=== PATIENT | male | born 1995 | race Caucasian/White ===

== ENCOUNTER 2019-07-21 18:48 | Emergency (ER) | payer BC ==
[2019-07-21] MEDS ORDERED: HYDROmorphone 1 MG/ML Syringe IVPUSH ONE (19:26)
[2019-07-21] MEDS ORDERED: Acetaminophen 325 MG Tab PO ONE (19:26)
[2019-07-21] MEDS ORDERED: Metoclopramide 10 MG/2 ML SDV IVPUSH ONE (19:26)
[2019-07-21] MEDS ORDERED: Ketorolac 30 MG/ML SDV IVPUSH SCH (19:30)
[2019-07-21] MEDS ORDERED: Dextrose 5%-0.9% NaCl 1,000 ML IV SCH (19:30)
--- NOTE | 2019-07-21 19:32 | EDM.PDOC ---
ED HPI GENERAL MEDICAL PROBLEM - General Chief Complaint: Respiratory Problem Stated Complaint: COUGH AND CONGESTION AND VOMITTING Time Seen by Provider: 07/21/19 19:20 Source of Information: Reports: Patient History Limitations: Reports: No Limitations - History of Present Illness INITIAL COMMENTS - FREE TEXT/NARRATIVE: 24-year-old male presents to the ED with acute onset of high fever, body aches, chills, headache loss of appetite, posttussive vomiting over the last 24 to 36 hours. No one else in his family is ill. He did not have a flu shot this year. His cough is minimally productive. No hemoptysis. He has not been able to keep anything down so far today. No diarrhea. Most of his emesis has been posttussive. Onset: Sudden Onset Date: 07/20/19 Duration: Hour(s):, Getting Worse Location: Reports: Generalized Quality: Reports: Ache Severity: Moderate Improves with: Reports: None Worsens with: Reports: None Context: Reports: Other (Spontaneous occurrence). Denies: Activity, Exercise, Lifting, Sick Contact, Trauma Associated Symptoms: Reports: Cough, cough w sputum, Fever/Chills, Headaches ( Temperature is 38.7 degrees), Loss of Appetite, Malaise, Nausea/Vomiting, Weakness (Posttussive nausea and vomiting). 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) - Related Data Allergies Allergy/AdvReac Type Severity Reaction Status Date / Time amoxicillin Allergy Rash Verified 07/21/19 19:08 Penicillins Allergy Rash Verified 07/21/19 19:08 Home Meds: Home Meds Hydrocodone/Chlorphen P-Stirex [Hydrocodone-Chlorphen ER Susp] 5 ml PO Q12H #60 ml 07/21/19 [Rx] Oseltamivir [Tamiflu] 75 mg PO BID #9 cap 07/21/19 [Rx] Past Medical History - Past Surgical History HEENT Surgical History: Reports: Myringotomy w Tube(s) Musculoskeletal Surgical History: Reports: Other (See Below) Other Musculoskeletal Surgeries/Procedures:: broken pinky Social & Family History - Living Situation & Occupation Occupation: Employed ED ROS GENERAL - Review of Systems Review Of Systems: See Below Constitutional: Reports: Fever, Chills, Malaise, Weakness, Fatigue, Decreased Appetite HEENT: Reports: Throat Pain Respiratory: Reports: Cough, Sputum. Denies: Wheezing, Pleuritic Chest Pain, Hemoptysis, Other Cardiovascular: Denies: No Symptoms, Chest Pain, Blood Pressure Problem, Claudication, Dyspnea on Exertion, Edema, Lightheadedness Endocrine: Reports: Fatigue GI/Abdominal: Reports: Nausea, Vomiting. Denies: Diarrhea (Many mostly has been posttussive vomiting.) : Reports: No Symptoms Musculoskeletal: Reports: Muscle Pain (Generalized myalgia) Skin: Reports: No Symptoms Neurological: Reports: Dizziness, Headache Psychiatric: Reports: No Symptoms Hematologic/Lymphatic: Reports: No Symptoms Immunologic: Reports: No Symptoms ED EXAM, GENERAL - Physical Exam Exam: See Below Exam Limited By: No Limitations General Appearance: Alert, WD/WN, Mild Distress, Other (She is very warm to palpation.) Eye Exam: Bilateral Eye: Normal Inspection (No scleral icterus or blepharal pallor.) Ears: Normal TMs Throat/Mouth: Normal Inspection, Normal Lips, Normal Teeth, Normal Oropharynx Head: Atraumatic, Normocephalic Neck: Normal Inspection, Supple, Non-Tender, Full Range of Motion. No: Lymphadenopathy (L), Lymphadenopathy (R) Respiratory/Chest: No Respiratory Distress, Lungs Clear, Normal Breath Sounds, No Accessory Muscle Use. No: Rales, Rhonchi, Wheezing Cardiovascular: Normal Peripheral Pulses, Regular Rate, Rhythm, No Edema, No Gallop, No Murmur, No Rub Peripheral Pulses: 3+: Posterior Tibial (L), Posterior Tibial (R), Dorsalis Pedis (L), Dorsalis Pedis (R) GI/Abdominal: Normal Bowel Sounds, Soft, Non-Tender, No Organomegaly, No Abnormal Bruit, No Mass, Pelvis Stable. No: Guarding, Rigid, Rebound, Tender Back Exam: Normal Inspection, Full Range of Motion. No: CVA Tenderness (L), CVA Tenderness (R) Extremities: Normal Inspection, Normal Range of Motion, Non-Tender Neurological: Alert, Oriented, CN II-XII Intact, Normal Cognition Psychiatric: Normal Affect, Normal Mood Skin Exam: Warm, Dry, Intact, Normal Color, No Rash Course - Vital Signs Last Recorded V/S: Last Vital Signs Temp 38.7 C H 07/21/19 19:04 Pulse 97 07/21/19 19:04 Resp 18 07/21/19 19:04 BP 126/81 07/21/19 19:04 Pulse Ox 96 07/21/19 19:04 - Orders/Labs/Meds Orders: Active Orders 24 hr Category Date Time Status Chest 1V Frontal [CR] Stat Exams 07/21/19 20:30 Taken Meds: Medications Discontinued Medications Generic Name Dose Route Start Last Admin Trade Name Enrique PRN Reason Stop Dose Admin Acetaminophen 975 mg 07/21/19 19:26 07/21/19 19:43 Tylenol PO 07/21/19 19:27 975 mg NOW ONE Administration Hydromorphone HCl 1 mg 07/21/19 19:26 07/21/19 19:43 Dilaudid IVPUSH 07/21/19 19:27 1 mg ONETIME ONE Administration Dextrose/Sodium Chloride 1,000 mls @ 999 mls/hr 07/21/19 19:30 07/21/19 19:42 Dextrose 5%-Normal Saline IV 999 mls/hr ASDIRECTED JENNIFER Administration Ketorolac Tromethamine 30 mg 07/21/19 19:30 07/21/19 19:47 Toradol IVPUSH 30 mg ONETIME JENNIFER Administration Metoclopramide HCl 10 mg 07/21/19 19:26 07/21/19 19:43 Reglan IVPUSH 07/21/19 19:27 10 mg ONETIME ONE Administration Oseltamivir Phosphate 75 mg 07/21/19 21:15 07/21/19 21:33 Tamiflu PO 07/21/19 21:16 75 mg ONETIME ONE Administration - Radiology Interpretation Free Text/Narrative:: 24-year-old male presents to the ED with acute onset of high fever, generalized myalgia, headache, posttussive vomiting and loss of appetite with paroxysmal cough for the last day and a half. Clinically has influenza. Influenza screen has already been done by the triage nurse. He has not been able to eat all day. He will be given D5 normal saline at open. Given Reglan 10 mg IV for nausea relief and Dilaudid 1 mg IV for both cough relief and body ache relief. Toradol 30 mg and will be given Tylenol 9 7 5 mg orally 20 minutes after the Reglan has been infused. - Re-Assessments/Exams Free Text/Narrative Re-Assessment/Exam: 07/21/19 20:30 influenza screen came back negative. Therefore a portable chest x-ray will be done. 07/21/19 21:15 x-ray reveals bilateral perihilar infiltrates compatible with viral upper expiratory tract infection. Clinically the patient has influenza. I am going to treat him as thus. He will start Tamiflu 75 mg by mouth now and then a prescription to cook pickled meat tomorrow morning as well as a prescription for Penntuss cough syrup 5 mils every 12 hours as needed for cough relief. He will continue Motrin 600 mg every 6 hours to maintain fever body ache and headache control. Departure - Departure Time of Disposition: 21:16 Disposition: Home, Self-Care 01 Condition: Fair Clinical Impression: Influenza - Discharge Information *PRESCRIPTION DRUG MONITORING PROGRAM REVIEWED*: Not Applicable *COPY OF PRESCRIPTION DRUG MONITORING REPORT IN PATIENT MARCELO: Not Applicable Prescriptions: Hydrocodone/Chlorphen P-Stirex [Hydrocodone-Chlorphen ER Susp] 5 ml PO Q12H #60 ml Oseltamivir [Tamiflu] 75 mg PO BID #9 cap Instructions: Influenza, Adult, [id number] Referrals: PCP,None [Primary Care Provider] - Forms: ED Department Discharge, ED Return to Work/School Form Additional Instructions: Evaluation in the emergency room today in regards to acute onset of high fever body aches, chills, headache, a severe paroxysmal cough all compatible with influenza. Influenza screen proved to be negative however this is not uncommon when we test within the first 24 hours of illness as we often get a false negative report. The chest x-ray was done to make sure that no pneumonia was present and no pneumonia was found. The chest x-ray shows evidence of viral infection. Given a liter of IV fluids as you have not been able to eat or drink all day. You were given medication for nausea relief and headache and body ache relief. You will need to take Motrin 600 mg every 6 hours for the next day and 1/2 to 2 days until the Tamiflu medication becomes effective in reducing symptoms. First dose of Motrin would be due around 1:00 this morning and then every 6 hours. First dose of Tamiflu was given in the ED and you will need to cook pickled meat prescription for that medication Zuniga morning and continue twice daily for another 4-1/2 days. Also a prescription was written for strong cough syrup called Penntuss 5 mils every 12 hours as necessary for relief of severe cough. Work for the next week due to current illness and being contagious to others. Sepsis Event Note - Evaluation Sepsis Screening Result: Possible Sepsis Risk - Focused Exam Vital Signs: Vital Signs Temp Pulse Resp BP Pulse Ox 07/21/19 19:04 38.7 C H 97 18 126/81 96 Date Exam was Performed: 07/22/19 Time Exam was Performed: 02:54 - My Orders Last 24 Hours: My Active Orders 07/21/19 20:30 Chest 1V Frontal [CR] Stat - Assessment/Plan Last 24 Hours: My Active Orders 07/21/19 20:30 Chest 1V Frontal [CR] Stat
[2019-07-21] MEDS ORDERED: Oseltamivir 75 MG Cap PO ONE (21:15)
--- NOTE | 2019-07-22 06:55 | CR ---
Chest: Portable view of the chest was obtained. Comparison: No prior chest imaging. Heart size and mediastinum are normal. Slight increased density is seen off the left perihilar region. Lungs otherwise are clear. Bony structures are unremarkable. Impression: 1. Slight increased density off the left perihilar region. Mild area of pneumonia is possible. Diagnostic code #3 This report was dictated in [place] Standard Time
== END 2019-07-21 21:35 | disposition home or self-care (01) ==
LOC: JD.ED 18:48
DX: J11.1 Influenza due to unidentified influenza virus with other respiratory manifestations (principal); Z88.0 Allergy status to penicillin; Z88.1 Allergy status to other antibiotic agents
CPT/HCPCS: 71045; 87804; 96361; 96374; 96375; 99284; A9270; J1170; J1885; J2765; J7042; 99283